=== PATIENT | male | born 1945 | race Caucasian/White ===

== ENCOUNTER 2020-10-09 11:02 | Day surgery (SDC) | payer MEDICARE, OTHER ==
[~2020-10-09] VITALS: Ht 180.3 cm; Wt 88.4 kg
[2020-10-09 11:34] VITALS: BP_SYST 135; BP_SYST 165; BP_DIAS 82
[2020-10-09] MEDS ORDERED: RIVA10TA2 PO (11:43)
[2020-10-09] MEDS ORDERED: LACTATED RINGERS 1,000 ML IV SCH (12:00)
[2020-10-09] MEDS ORDERED: CHLORHEXIDINE 15 ML UDC MM ONE (12:00)
[2020-10-09 12:10] LABS: INTERNATIONAL NORMALIZED RATIO 1.05 (0.93-1.1); PROTHROMBIN TIME 11.1 Seconds (9.6-11.5)
[2020-10-09 12:16] LABS: ANION GAP 6 mmol/L (5-15); CHLORIDE 111 mmol/L (98-107); CREATININE 1.11 mg/dL (0.7-1.3)
[2020-10-09 12:17] LABS: BASOPHILS % (AUTO) 2 % (0-1); EOSINOPHILS % (AUTO) 1 % (1-7); LYMPHOCYTES % (AUTO) 27 % (22-44); MEAN CORPUSCULAR HGB CONC 33.9 g/dL (33.2-36.2); MEAN PLATELET VOLUME 10.5 fL (7.4-10.4); MONOCYTES % (AUTO) 8 % (2-9); NEUTROPHILS % (AUTO) 62 % (42-75); PLATELET COUNT 151 x10^3/uL (130-400); RED BLOOD COUNT 5.44 x10^6/uL (4.38-5.82); RED CELL DISTRIBUTION WIDTH 13.7 % (9.4-14.8)
[2020-10-09 12:28] LABS: MD NO
[2020-10-09 12:29] LABS: MICROSCOPIC NOT IND
[2020-10-09] MEDS ORDERED: MIDAZOLAM 1 MG/ML, 2ML ONE (13:27)
[2020-10-09] MEDS ORDERED: FENTANYL PF 100 MCG/2ML ONE (13:27)
[2020-10-09] MEDS ORDERED: CEFAZOLIN 1,000 MG ONE (13:36)
[2020-10-09] MEDS ORDERED: PROPOFOL 10 MG/ML, 20ML ONE (13:36)
[2020-10-09] MEDS ORDERED: DEXAMETHASONE 4 MG/ML, 1ML ONE (13:36)
[2020-10-09] MEDS ORDERED: GLYCOPYRROLATE 0.2MG/1ML, 5ML ONE (13:36)
[2020-10-09] MEDS ORDERED: ONDANSETRON 2MG/ML, 2ML ONE (13:36)
[2020-10-09] MEDS ORDERED: HYDROmorphone 1 MG/ML, 1ML INJ IVPush PRN (14:30)
[2020-10-09] MEDS ORDERED: FENTANYL PF 100 MCG/2ML IV PRN (14:30)
[2020-10-09] MEDS ORDERED: OXYcodone 5 MG/5 ML ORAL.SOL UDC PO PRN (14:30)
[2020-10-09] MEDS ORDERED: PROMETHAZINE 25 MG/ML, 1ML IVPush PRN (14:30)
[2020-10-09] MEDS ORDERED: HYDROcodone/APAP 7.5-325MG/15ML UDC PO PRN (14:30)
[2020-10-09] MEDS ORDERED: MEPERIDINE/PF 25MG/0.5ML IVPush PRN (14:30)
[2020-10-09] MEDS ORDERED: PHENAZOPYRIDINE 200 MG TABLET ONE (15:13)
[2020-10-09] MEDS ORDERED: PHENAZOPYRIDINE 200 MG TABLET PO ONE (15:30)
[2020-10-09] MEDS ORDERED: PHEN-418 PO (16:27)
[2020-10-09] MEDS ORDERED: HYDR-3240 PO (16:27)
== END 2020-10-09 17:00 | disposition home or self-care (01) ==
LOC: OUT 11:02
PROVIDERS: ATTEND Urology
DX: N21.0 Calculus in bladder (principal); N40.0 Benign prostatic hyperplasia without lower urinary tract symptoms; Z79.01 Long term (current) use of anticoagulants; Z79.899 Other long term (current) drug therapy; Z86.718 Personal history of other venous thrombosis and embolism; Z87.442 Personal history of urinary calculi
CPT/HCPCS: 36415; 52317; 80048; 81003; 82360; 85025; 85610; 85730; 88300; 93005; C2630; J0690; J1100; J2250; J2405; J2704; J3010; J7120